=== PATIENT | female | born 1980 | race Caucasian/White ===

== ENCOUNTER 2018-10-01 21:51 | Outpatient (CLI) | payer MEDICAID | END 2018-10-02 01:40 | disposition home or self-care (01) | LOC: OBT 21:51 → L-D 21:52 | DX: O62.9 Abnormality of forces of labor, unspecified (principal); Z3A.39 39 weeks gestation of pregnancy; O47.9 False labor, unspecified | CPT/HCPCS: Z7500 ==

== ENCOUNTER 2018-10-05 11:30 | Inpatient (IN) | payer MEDICAID ==
[2018-10-05] MEDS ORDERED: MISOPROSTOL 200 MCG TAB PR ×2 (12:00→23:00)
[2018-10-05] MEDS ORDERED: OXYCODONE/ASPIRIN (4.88/325) TAB PO (12:00)
[2018-10-05] MEDS ORDERED: OXYTOCIN 30 UNITS/LR 500 ML IV ×3 (12:00→23:00)
[2018-10-05] MEDS ORDERED: AMPICILLIN 2 GM/NS (PMX) 100 ML IV (12:00)
[2018-10-05] MEDS ORDERED: LIDOCAINE 1% (MPF) 30 ML INJ INJ (12:00)
[2018-10-05] MEDS ORDERED: BUTORPHANOL 2 MG INJ IV (12:00)
[2018-10-05] MEDS ORDERED: CARBOPROST 250 MCG INJ IM ×2 (12:00→23:00)
[2018-10-05] MEDS: LACTATED RINGER'S 1,000 ML IV ×2 (12:23→13:24)
[2018-10-05] MEDS: OXYTOCIN 30 UNITS/LR 500 ML IV ×3 (12:37→23:39)
[2018-10-05 12:41] LABS: ADD MAN DIFF? NO
[2018-10-05 12:45] LABS: WHITE BLOOD COUNT 7.2 10^3/ul (4.8-10.8)
[2018-10-05 12:45] LABS: BASOPHILS % 0.1 % (0.0-2.0); EOSINOPHILS % 0.6 % (0.0-7.0); HEMATOCRIT 41.3 % (37.0-47.0); HEMOGLOBIN 14.2 g/dl (12.0-16.0); LYMPHOCYTES # 1.9 10^3/ul (0.8-2.9); MEAN CORPUSCULAR HEMOGLOBIN 31.3 pg (29.0-33.0); MEAN CORPUSCULAR HGB CONC 34.4 g/dl (32.0-37.0); MEAN PLATELET VOLUME 10.9 fl (7.4-10.4); MONOCYTE # 0.5 10^3/ul (0.3-0.9); MONOCYTES % 6.8 % (0.0-11.0); NEUTROPHIL # 4.7 10^3/ul (1.6-7.5); NEUTROPHILS % 65.1 % (39.0-77.0); PLATELET COUNT 207 10^3/UL (140-415); RED BLOOD COUNT 4.54 10^6/ul (4.20-5.40); RED CELL DISTRIBUTION WIDTH 12.9 % (11.5-14.5)
[2018-10-05] MEDS ORDERED: FENTAnyl 2MCG/ML-ROPIV 0.2% 100 ML (12:53)
[2018-10-05] MEDS ORDERED: FENTAnyl 2MCG/ML-ROPIV 0.2% 100 ML BAG EPI (13:00)
[2018-10-05] MEDS ORDERED: ONDANSETRON 4 MG INJ IV (13:00)
[2018-10-05] MEDS ORDERED: DIPHENHYDRAMINE 50 MG INJ IV (13:00)
[2018-10-05] MEDS ORDERED: NALOXONE (0.4 MG/ML) INJ IV (13:00)
[2018-10-05 13:05] LABS: INR 0.87; PROTIME 11.9 Sec (11.9-14.9); PT RATIO 0.9
[2018-10-05 13:06] LABS: PARTIAL THROMBOPLASTIN TIME 28.6 Sec (23.0-35.0)
[2018-10-05 13:39] LABS: HEPATITIS B SURFACE ANTIGEN NEGATIVE (NEGATIVE)
[2018-10-05 15:17] LABS: RAPID PLASMA REAGIN NONREACTIVE (NR)
[2018-10-05] MEDS ORDERED: AMPICILLIN 1 GM/NS (PMX) 50 ML IV (16:00)
[2018-10-05] MEDS ORDERED: MINERAL OIL LIGHT 10 ML VIAL (17:51)
[2018-10-05] MEDS: METHYLERGONOVINE 0.2 MG INJ IM (18:07)
[2018-10-05] MEDS: MINERAL OIL LIGHT 10 ML VIAL TOP (19:03)
[2018-10-05] MEDS: IBUPROFEN 600 MG TAB PO (20:07)
[2018-10-05] MEDS: LACTATED RINGER'S 1,000 ML IV* (22:43)
[2018-10-05] MEDS ORDERED: ACETAMINOPHEN 325 MG TAB PO (23:00)
[2018-10-05] MEDS ORDERED: BENZOCAINE 20% 56 ML SPRAY TOP (23:00)
[2018-10-05] MEDS ORDERED: LANOLIN HPA 1 PKT TOP (23:00)
[2018-10-05] MEDS ORDERED: MAGNESIUM HYDROXIDE 30ML CUP PO (23:00)
[2018-10-05] MEDS ORDERED: SENNA/DOCUSATE NA (8.6MG/50MG) TAB PO (23:00)
[2018-10-05] MEDS ORDERED: WITCH HAZEL/GLYCERIN PAD PR (23:00)
[2018-10-05] MEDS ORDERED: HYDROCODONE/APAP (5/325) TAB PO (23:00)
[2018-10-05] MEDS ORDERED: DIPHENHYDRAMINE 25 MG CAP PO (23:00)
[2018-10-05] MEDS ORDERED: ZOLPIDEM 5 MG TAB PO (23:00)
[2018-10-05] MEDS ORDERED: METHYLERGONOVINE 0.2 MG INJ IM (23:00)
[2018-10-06] MEDS: IBUPROFEN 800 MG TAB PO ×5 (00:27→23:16)
[2018-10-06] MEDS: LACTATED RINGER'S 1,000 ML IV* ×3 (06:38→18:19)
[2018-10-06 09:06] LABS: ADD MAN DIFF? NO
[2018-10-06 09:09] LABS: BASOPHILS % 0.2 % (0.0-2.0); EOSINOPHILS % 0.1 % (0.0-7.0); HEMATOCRIT 34.9 % (37.0-47.0); LYMPHOCYTES # 1.2 10^3/ul (0.8-2.9); MEAN CORPUSCULAR HGB CONC 34.4 g/dl (32.0-37.0); MEAN CORPUSCULAR VOLUME 90.2 fl (82.0-101.0); MONOCYTE # 0.7 10^3/ul (0.3-0.9); MONOCYTES % 6.3 % (0.0-11.0); NEUTROPHIL # 9.6 10^3/ul (1.6-7.5); PLATELET COUNT 146 10^3/UL (140-415); RED BLOOD COUNT 3.87 10^6/ul (4.20-5.40)
[2018-10-06 09:09] LABS: WHITE BLOOD COUNT 11.5 10^3/ul (4.8-10.8)
[2018-10-07] MEDS: IBUPROFEN 800 MG TAB PO ×2 (05:28→12:51)
[2018-10-07] MEDS: VARICELLA VACCINE LIVE/PF 1,350 UNIT/0.5 ML ML SC* (09:00)
[2018-10-07] MEDS: DIPHTH/TET/ACEL PERTUSS (ADULT) 0.5 ML VIAL IM* (09:00)
[2018-10-07] MEDS: MEASLES,MUMPS,RUBELLA VACCINE INJ SC* (09:00)
== END 2018-10-07 14:22 | disposition home or self-care (01) | DRG 807 ==
LOC: L-D 11:30 → PP1 20:16
PROVIDERS: Obstetrics & Gynecology
PROC: 10E0XZZ Delivery of Products of Conception, External Approach (ICD-10-PCS; principal; 2018-10-05)
DX: O80 Encounter for full-term uncomplicated delivery (principal); Z37.0 Single live birth; Z3A.39 39 weeks gestation of pregnancy
CPT/HCPCS: 62319; 85025; 85610; 85730; 86592; 86850; 86900; 86901; 87340; 90716; 99464